=== PATIENT | female | born 1995 | race American Indian/Alaskan Native ===

== ENCOUNTER 2017-06-02 15:44 | Emergency (ER) | payer MEDICAID ==
[2017-06-02 15:53] VITALS: BP 110/49
--- NOTE | 2017-06-02 17:51 | Emergency Department Report ---
Minor Respiratory - HPI Chief Complaint: Sore Throat Stated Complaint: SORE THROAT Time Seen by Provider: 06/02/17 17:04 Duration: 3 Days Pain Location: Throat Severity: moderate Minor Respiratory: Yes Rhinorrhea, Yes Sore Throat, Yes Able to Tolerate Fluids , Yes Cough (slight), Yes Sick Contacts, No Ear Pain, No Hemoptysis, No Chest Pain, No Shortness of Breath, No Fever Other History: Pt reports sore throat, minor cough for a few days. Also reports lower abdominal pain x 1 week and has noted some discharge. Emesis x 1. ED Review of Systems ROS: Stated complaint: SORE THROAT Other details as noted in HPI Comment: All other systems reviewed and negative Constitutional: denies: chills, fever Eyes: denies: eye pain, eye discharge, vision change ENT: throat pain, congestion. denies: ear pain Respiratory: cough. denies: shortness of breath, wheezing Cardiovascular: denies: chest pain, palpitations Endocrine: no symptoms reported Gastrointestinal: abdominal pain, nausea, vomiting. denies: diarrhea Genitourinary: discharge. denies: urgency, dysuria Musculoskeletal: denies: back pain, joint swelling, arthralgia Skin: denies: rash, lesions Neurological: denies: headache, weakness, paresthesias Psychiatric: denies: anxiety, depression Hematological/Lymphatic: denies: easy bleeding, easy bruising ED Past Medical Hx - Past Medical History Previous Medical History?: No - Surgical History Past Surgical History?: No - Social History Smoking Status: Never Smoker Substance Use Type: None - Medications Home Medications: Home Medications Medication Instructions Recorded Confirmed Last Taken Type Cefuroxime [Ceftin] 500 mg PO Q12H 10 Days #40 tablet 06/02/17 Unknown Rx metroNIDAZOLE [Flagyl] 2,000 mg PO ONCE #4 tablet 06/02/17 Unknown Rx Minor Respiratory Exam - Exam General: Vital signs noted. No distress. Alert and acting appropriately. Pelvic exam with malodorous discharge, no CMT. Chaperoned by MIHAI Lorenzana HEENT: Yes Pharyngeal Erythema, Yes Pharyngeal Exudates (tonsils 2+), Yes Moist Mucous Membranes, No Rhinorrhea, No Conjuctival Injection, No Frontal Tenderness , No Maxillary Tenderness Ear: Neither TM Bulge, Neither TM Erythema, Neither EAC Pain, Neither EAC Discharge Neck: Yes Supple, No Adenopathy Lungs: Yes Good Air Exchange, No Wheezes, No Ronchi, No Stridor, No Cough, No Labored Respirations, No Retractions, No Use of Accessory Muscles, No Other Abnormal Lung Sounds Heart: Yes Regular, No Murmur Abdomen: Yes Tenderness (mild suprapubic), Yes Normal Bowel Sounds, No Peritoneal Signs Skin: No Rash, No Edema Neurologic: Alert and oriented, no deficits. Musculoskeletal: Unremarkable. ED Course Vital Signs 06/02/17 15:51 Temperature 98.3 F Pulse Rate 86 Respiratory 16 Rate Blood Pressure 110/49 O2 Sat by Pulse 100 Oximetry - Reevaluation(s) Reevaluation #1: 06/02/17 19:16 Pt stable for d/c. ED Medical Decision Making - Medical Decision Making Pt presents with tonsillitis and suprapubic pain. UA shows UTI, wet rpep shows clue cells. Empirically treated for STIs. Will d/c with Ceftin and Flagyl. - Differential Diagnosis strep, viral, uti, sti Critical care attestation.: If time is entered above; I have spent that time in minutes in the direct care of this critically ill patient, excluding procedure time. ED Disposition Clinical Impression: Bacterial vaginosis, Acute UTI Acute tonsillitis Qualifiers: Pharyngitis/tonsillitis etiology: unspecified etiology Qualified Code(s): J03.90 - Acute tonsillitis, unspecified Disposition: - TO HOME OR SELFCARE Is pt being admited?: No Condition: Good Instructions: Bacterial Vaginosis (ED), Strep Throat (ED) Prescriptions: Cefuroxime [Ceftin] 500 mg PO Q12H 10 Days #40 tablet metroNIDAZOLE [Flagyl] 2,000 mg PO ONCE #4 tablet Referrals: EMA TURNER MD [Primary Care Provider] - 3-5 Days Forms: STI Treatment and Prevention Time of Disposition: 19:20
[2017-06-02 17:59] LABS: HCG Qualitative,Urine Negative (Negative)
[2017-06-02 18:03] LABS: Bacteria,Urine 2+ /HPF (Negative); Bilirubin,Urine NEG (Negative); Blood,Urine NEG (Negative); Color,Urine Yellow (Yellow); Mucus,Urine FEW /HPF; Urobilinogen,Urine < 2.0 mg/dL (<2.0)
[2017-06-02] MEDS ORDERED: ZITHROMAX PO ONE (18:39)
[2017-06-02] MEDS ORDERED: ROCEPHIN IM ONE (18:39)
[2017-06-02] MEDS ORDERED: XYLOCAINE 1% MPF 5 mL INFILTRATI ONE (18:39)
== END 2017-06-02 19:34 | disposition home or self-care (01) ==
LOC: ED 15:44
DX: N76.0 Acute vaginitis (principal); B96.89 Other specified bacterial agents as the cause of diseases classified elsewhere; N39.0 Urinary tract infection, site not specified; J03.90 Acute tonsillitis, unspecified
CPT/HCPCS: 81001; 81025; 87210; 87591; 96372; 99283; J0696

== ENCOUNTER 2018-06-22 03:02 | Inpatient (IN) | payer MEDICAID ==
[2018-06-22] MEDS ORDERED: LACTATED RINGERS 500 ML IV ONE (03:28)
[2018-06-22 04:28] LABS: Bacteria,Urine 1+ /HPF (Negative); Bilirubin,Urine NEG (Negative); Blood,Urine NEG (Negative); Color,Urine Yellow (Yellow); Mucus,Urine FEW /HPF; Protein,Urine <15 mg/dL mg/dL (Negative)
[2018-06-22] MEDS ORDERED: LACTATED RINGERS 1,000 ML IV SCH (04:56)
[2018-06-22] MEDS ORDERED: ZOFRAN IV PRN (05:36)
[2018-06-22] MEDS ORDERED: MILK OF MAGNESIA PO PRN (05:36)
[2018-06-22] MEDS ORDERED: TYLENOL PO PRN (05:36)
[2018-06-22] MEDS ORDERED: BENADRYL PO PRN (05:36)
[2018-06-22] MEDS ORDERED: MAGNESIUM SULFATE 4GM/100ML 4 GM/100 ML BAG IV ONE (05:46)
[2018-06-22] MEDS ORDERED: AMPICILLIN/NS 2 GM/100 ML 2 GM/100 ML BAG IV ONE (05:46)
[2018-06-22] MEDS ORDERED: MYLICON PO PRN (05:46)
[2018-06-22] MEDS ORDERED: COLACE PO PRN (05:46)
--- NOTE | 2018-06-22 05:59 | History and Physical Report ---
<ZAINAB FINK D - Last Filed: 06/22/18 07:08> History of Present Illness Date of examination: 06/22/18 History of present illness: Menstrual History Regularity: regular Menses every: 28 days Duration: 7 LMP: 10/24/2018 LMP reliability: definite LMP character: normal test type: urine test Date: 04/24/2018 BC at conception: none Planned ? yes EDC Calculations LMP: 07/31/2019 EDC Confirmation: 08/30/2018 Gestational Age: 21 5/7 weeks Past History : 7 Term Births: 2 Premature Births: 1 Living Children: 3 Para: 3 Mult. Births: 0 Prev : 0 Prev. attempt? 0 Aborta: 3 Elect. Ab: 1 Spont. Ab: 2 Ectopics: 0 # 1 Delivery date: 2013 labor: no Delivery type: SAB # 2 Delivery date: 2013 Delivery type: SAB # 3 Delivery date: 2013 Weeks Gestation: 38 Delivery type: Delivery location: [place], [place] Infant Sex: Male weight: 5-6 # 4 Delivery date: 2014 Weeks Gestation: 35 labor: no Delivery type: Delivery location: [place], [place] Infant Sex: Male weight: 5-0 Comments: PROM # 5 Delivery date: 2016 Weeks Gestation: 38 labor: no Delivery type: Delivery location: [place], [place] Infant Sex: Female weight: 5-6 # 6 Delivery date: 2017 Delivery type: EAB Past Medical History: Bronchitis Past Surgical History: Negative Past Surgical History Past Medical History 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 Infection History Hx of STD: chlamydia HIV Risk Eval: low risk Hepatitis B Risk Eval: low risk Personal hx. of genital herpes: no Partner hx. of genital herpes: no Rash, Viral, or Febrile illness since last LMP? no Varicella/Chicken Pox Status: Immunized TB Risk: no Infection History Comments: gonorrhea Genetic History Congenital Heart Defect: Mom: no Dad: no Yen Disease: Mom: no Dad: no Thalassemia Mom: no Dad: no Neural Tube Defect Mom: no Dad: no Down's Syndrome Mom: no Dad: no Jsoe Antonio-Sachs Mom: no Dad: no Sickle Cell Disease/Trait Mom: no Dad: no Hemophilia Mom: no Dad: no Muscular Dystrophy Mom: no Dad: no Cystic Fibrosis Mom: no Dad: no [place] Chorea Mom: no Dad: no Mental Retardation Mom: no Dad: no Fragile X Mom: no Dad: no Other Genetic/Chromosomal Disorder Mom: no Dad: no Child w/other defect Mom: no Dad: no Enviromental Exposures Xray Exposure: no Medication, drug, or alcohol use since LMP: no Chemical/Other Exposure: no Exposure to Cat Liter: no Hx of Parvovirus (Fifth Disease): no Occupational Exposure to Children: none Current Allergies: * SHELLFISH (Critical) * NICKEL (Critical) Past History - Obstetrical History : 6 Medications and Allergies Allergies Allergy/AdvReac Type Severity Reaction Status Date / Time shellfish derived Allergy Rash Verified 06/02/17 15:53 Home Medications Medication Instructions Recorded Confirmed Last Taken Type cefUROXime [Ceftin] 500 mg PO Q12H 10 Days #40 tablet 06/02/17 Unknown Rx metroNIDAZOLE [Flagyl] 2,000 mg PO ONCE #4 tablet 06/02/17 Unknown Rx Active Meds: Active Medications Acetaminophen (Tylenol) 650 mg PO Q6H PRN PRN Reason: Pain MILD(1-3)/Fever >100.5/SENIOR Lactated Ringer's (Lactated Ringers) 1,000 mls @ 999 mls/hr IV DIRECT CARLOS MANUEL Lactated Ringer's (Lactated Ringers) 1,000 mls @ 125 mls/hr IV DIRECT CARLOS MANUEL Results Result Diagrams: 06/22/18 06:38 Abnormal lab results 06/22/18 Range/Units 03:30 Urine WBC (Auto) 26.0 H (0.0-6.0) /HPF U Epithel Cells (Auto) 20.0 H (0-13.0) /HPF All other labs normal. 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) Family/Genetic History: other (see hpi) Social history: other (see hpi) Medications and Allergies Active Meds: Active Medications Acetaminophen (Tylenol) 650 mg PO Q6H PRN PRN Reason: Pain MILD(1-3)/Fever >100.5/SENIOR Betamethasone Acet/Betameth SodPhos ([place] Soluspan) 12 mg IM Q24H CARLOS MANUEL Stop: 06/23/18 08:01 Last Admin: 06/22/18 07:25 Dose: 12 mg Documented by: Diphenhydramine HCl (Benadryl) 25 mg PO Q6H PRN PRN Reason: Itching Docusate Sodium (Colace) 100 mg PO Q12H PRN PRN Reason: Constipation Guaifenesin (Guaifenesin Dm Syrup) 10 ml PO Q6H PRN PRN Reason: Cough Lactated Ringer's (Lactated Ringers) 1,000 mls @ 125 mls/hr IV DIRECT CARLOS MANUEL Last Admin: 06/22/18 06:39 Dose: 125 mls/hr Documented by: Ampicillin Sodium (Ampicillin/Ns 1 Gm/50 Ml) 1 gm in 50 mls @ 100 mls/hr IV Q4 HR CARLOS MANUEL; Protocol Magnesium Sulfate (Magnesium Sulfate 40gm/1000ml) 40 gm in 1,000 mls @ 50 mls/hr IV DIRECT CARLOS MANUEL Magnesium Hydroxide (Milk Of Magnesia) 30 ml PO QHS PRN PRN Reason: Laxative Effect Multivitamins/Iron/Calcium ( Vitamin) 1 each PO QDAY CARLOS MANUEL Ondansetron HCl (Zofran) 4 mg IV Q6H PRN PRN Reason: Nausea And Vomiting Simethicone (Mylicon) 80 mg PO Q6H PRN PRN Reason: Gas pain Zolpidem Tartrate (Ambien) 5 mg PO QHS PRN PRN Reason: Insomnia Review of Systems All systems: negative Genitourinary: contractions - Vital Signs Vital signs: Vital Signs Pulse BP 71 111/55 06/22/18 06:23 06/22/18 06:23 Temp Pulse Resp BP Pulse Ox 110 H 124/66 85 06/22/18 08:24 06/22/18 08:02 06/22/18 08:24 - Physical Exam Breasts: Positive: normal Cardiovascular: Regular rate, Normal S1, Normal S2 Lungs: Positive: Clear to auscultation Abdomen: Positive: normal appearance, soft, normal bowel sounds. Negative: distention, tenderness Genitourinary (Female): Positive: normal external genitalia, normal perenium Vulva: both: normal Vagina: Positive: normal moisture. Negative: discharge Cervix: Negative: lesion, discharge Uterus: Positive: normal size, normal contour Adnexa: both: normal Anus/Rectum: Positive: normal perianal skin, heme negative. Negative: rectal mass, hemorrhoids Extremities: Positive: normal Deep Tendon Reflex Grade: Normal +2 - Obstetrical FHR: auscultation normal Uterine Contraction Monitor Mode: External Uterine Contraction Pattern: Irregular Uterine Tone Measurement Phase: Contraction Uterine Contraction Intensity: Mild Results Result Diagrams: 06/22/18 06:38 Abnormal lab results 06/22/18 06/22/18 Range/Units 03:30 06:38 RBC 3.39 L (3.65-5.03) M/mm3 Hct 29.7 L (30.3-42.9) % RDW 13.0 L (13.2-15.2) % Urine WBC (Auto) 26.0 H (0.0-6.0) /HPF U Epithel Cells (Auto) 20.0 H (0-13.0) /HPF All other labs normal. Assessment and Plan Patient presents for contractions. SVE 2.5/60/OOP, posterior, IBOW. Admission orders placed in EMR, BMZ series, magnesium per protocol. VSSAF. Pt was +chl amydia in office, treatment prescribed. AMADO ordered here. US for EFW ordered. NICU consult input. Will continue to monitor.
[2018-06-22] MEDS ORDERED: AMBIEN PO PRN ×2 (06:01→07:15)
[2018-06-22] MEDS: LACTATED RINGERS 1,000 ML IV SCH (06:39)
[2018-06-22] MEDS: MAGNESIUM SULFATE 40GM/1000ML 40 GM/1,000 ML BAG IV SCH (07:00)
[2018-06-22 07:04] LABS: Hematocrit 29.7 % (30.3-42.9); Hemoglobin 10.1 gm/dl (10.1-14.3); Mean Corpuscular HGB Conc 34 % (30-34); Mean Corpuscular Volume 88 fl (79-97); Platelet Count 222 K/mm3 (140-440); Red Blood Count 3.39 M/mm3 (3.65-5.03)
[2018-06-22] MEDS: CELESTONE SOLUSPAN IM SCH (07:25)
--- NOTE | 2018-06-22 08:26 | Progress Note ---
Subjective - Subjective Date of service: 06/22/18 Patient reports: movement normal, contractions, no new complaints, no loss of fluid, no vaginal bleeding Objective - Vital Signs Vital Signs: Vital Signs - 12hr 06/22/18 06/22/18 06/22/18 06:23 06:28 06:34 Pulse Rate 71 81 90 Blood Pressure 111/55 113/56 119/56 O2 Sat by Pulse Oximetry 06/22/18 06/22/18 06/22/18 06:41 06:46 06:51 Pulse Rate 84 87 76 Blood Pressure 124/63 O2 Sat by Pulse 98 98 100 Oximetry 06/22/18 06/22/18 06/22/18 06:56 07:01 07:06 Pulse Rate 82 78 76 Blood Pressure 118/61 O2 Sat by Pulse 99 98 100 Oximetry 06/22/18 06/22/18 06/22/18 07:11 07:16 07:21 Pulse Rate 75 77 81 Blood Pressure 113/59 O2 Sat by Pulse 99 99 99 Oximetry 06/22/18 06/22/18 06/22/18 07:26 07:31 07:36 Pulse Rate 83 81 76 Blood Pressure 115/59 O2 Sat by Pulse 100 100 100 Oximetry 06/22/18 06/22/18 06/22/18 07:41 07:46 07:51 Pulse Rate 81 82 83 Blood Pressure 115/57 O2 Sat by Pulse 100 100 99 Oximetry 06/22/18 06/22/18 06/22/18 07:56 07:58 08:01 Pulse Rate 87 62 95 H Blood Pressure O2 Sat by Pulse 99 89 100 Oximetry 06/22/18 06/22/18 06/22/18 08:02 08:06 08:11 Pulse Rate 83 75 89 Blood Pressure 124/66 O2 Sat by Pulse 100 99 Oximetry 06/22/18 08:17 Pulse Rate 83 Blood Pressure O2 Sat by Pulse 100 Oximetry - Exam Breasts: normal Cardiovascular: Regular rate, Normal S1, Normal S2 Lungs: Clear to auscultation Abdomen: Present: normal appearance, soft, normal bowel sounds. Absent: distention, tenderness Vulva: both: normal Uterus: Present: normal FHR: auscultation normal Uterine Contraction Monitor Mode: External Uterine Contraction Pattern: Irregular Uterine Contraction Intensity: Mild Extremities: normal Deep Tendon Reflex Grade: Normal +2 - Labs Labs: Abnormal Labs 06/22/18 06/22/18 03:30 06:38 RBC 3.39 L Hct 29.7 L RDW 13.0 L Urine WBC (Auto) 26.0 H U Epithel Cells (Auto) 20.0 H Laboratory Results - last 24 hr 06/22/18 06/22/18 03:30 06:38 WBC 10.5 RBC 3.39 L Hgb 10.1 Hct 29.7 L MCV 88 MCH 30 MCHC 34 RDW 13.0 L Plt Count 222 Urine Color Yellow Urine Turbidity Slightly-cloudy Urine pH 7.0 Ur Specific [place] 1.019 Urine Protein <15 mg/dl Urine Glucose (UA) Neg Urine Ketones Neg Urine Blood Neg Urine Nitrite Neg Urine Bilirubin Neg Urine Urobilinogen 2.0 Ur Leukocyte Esterase Lg Urine WBC (Auto) 26.0 H Urine RBC (Auto) 3.0 U Epithel Cells (Auto) 20.0 H Urine Bacteria (Auto) 1+ Urine Mucus Few
[2018-06-22] MEDS ORDERED: SUBLIMAZE IV PRN (08:39)
[2018-06-22] MEDS ORDERED: SUBLIMAZE ONE (08:44)
[2018-06-22 09:02] LABS: Amphetamine Screen,Urine PRESUMPTIVE NEGATIVE; Benzodiazepines Screen,Urine PRESUMPTIVE NEGATIVE; Cocaine Screen,Urine PRESUMPTIVE NEGATIVE; Methadone Screen,Urine PRESUMPTIVE NEGATIVE; Opiate Screen,Urine PRESUMPTIVE NEGATIVE
--- NOTE | 2018-06-22 09:17 | Ultrasound Report ---
PROCEDURE: US OB >= 14 WEEKS FETUS TECHNIQUE: Real-time transabdominal sonography of the uterus, placenta, amniotic fluid, adnexa, and fetus was performed with image documentation. Measurements were obtained to determine age/size. M-mode Doppler was used to document heartbeat. ADDITIONAL GESTATION: None HISTORY: PTL COMPARISONS: None. FINDINGS: MATERNAL: Uterus and cervix: The cervix is closed measures 4 cm in length. Adnexa and ovaries: Not visualized. IUP: Single live intrauterine gestation. Position: Cephalic Placental position: Posterior, without previa . Amniotic fluid volume Normal. LAURA is 10.2 cm. Cardiac activity: Regular rhythm at 130 bpm. ANATOMY: Face/lips/nose: Normal. Cerebral ventricles: Normal. Cisterna magna/cerebellum: Not well visualized due to lie. Heart: Normal. Stomach: Normal. Umbilical cord: 3 vessel umbilical cord with normal insertion. Kidneys: Normal. Bladder: Normal. Spine: Normal. Extremities: Normal. BIOMETRY: Biparietal diameter: 7.24 cm, corresponding to a gestational age of 29 weeks, 0 days. Head circumference: 25.87 cm, corresponding to a gestational age of 28 weeks, 1 day. abdominal circumference: 24.85 cm, corresponding to a gestational age of 29 weeks, 1 day. Femur length: 5.36 cm, corresponding to a gestational age of 28 weeks, 3 days. Ratio biometry: Normal . Estimated Weight: 1280 grams +/- 189 grams. 2 pounds, 13 ounces +/- 7.ounces. 6. percentile . Mean Gestational Age (composite criteria) based on today's measurements: 30 weeks, 1 day. Estimated Due Date (earliest scan): 09/09/2018. IMPRESSION: Single live intrauterine gestation at 30 weeks, 1 day. Estimated due date: 09/09/2018. No anatomic abnormality. This document is electronically signed by Nubia Morrison MD., Jun 22 2018 09:15:01 AM ET
[2018-06-22 09:47] LABS: Cannabinoid Screen,Urine PRESUMPTIVE POSITIVE
[2018-06-22] MEDS ORDERED: CELESTONE SOLUSPAN IM SCH (10:00)
[2018-06-22] MEDS ORDERED: AMPICILLIN/NS 1 GM/50 ML 1 GM/50 ML BAG IV SCH (10:00)
[2018-06-22 11:55] LABS: Band Neutrophils # (Manual) 0.1 K/mm3; Myelocytes # (Manual) 0.1 K/mm3; Total Cells Counted 100
[2018-06-22 11:56] LABS: Platelet Estimate Consistent w Auto; RBC Morphology Normal
[2018-06-22] MEDS: AMPICILLIN/NS 1 GM/50 ML 1 GM/50 ML BAG IV SCH ×2 (12:28→17:05)
[2018-06-22] MEDS: PRENATAL VITAMIN PO SCH (12:29)
[2018-06-23] MEDS: MAGNESIUM SULFATE 40GM/1000ML 40 GM/1,000 ML BAG IV SCH (02:42)
--- NOTE | 2018-06-23 06:53 | Progress Note ---
Assessment and Plan - Patient Problems (1) 30 weeks gestation of Current Visit: Yes Status: Acute Plan to address problem: 1. BMZ second dose due 07 (2) labor in third trimester Current Visit: Yes Status: Acute Qualifiers: Fetus number: single or unspecified fetus Plan to address problem: Pt resting O2 on via facemask Pt c/o pressure Denies ctx Reports +FM VSS Ctx irreg mod-mild SVE no change FHR 130 minimal variability IUP@ 30w2d Second dose BMZ due @ 0730 MGSO4 @ 2gm/hr Will continue POC as ordered Will consult with . Subjective - Subjective Date of service: 06/23/18 (c/o pressure) Principal diagnosis: IUP@30w2d PTL Patient reports: movement normal Objective - Vital Signs Vital Signs: Vital Signs - 12hr 06/22/18 06/22/18 06/22/18 18:55 19:00 19:05 Temperature Pulse Rate 101 H 94 H 91 H Respiratory Rate Blood Pressure O2 Sat by Pulse 97 100 98 Oximetry 06/22/18 06/22/18 06/22/18 19:10 19:15 19:20 Temperature Pulse Rate 107 H 96 H 94 H Respiratory Rate Blood Pressure O2 Sat by Pulse 97 98 97 Oximetry 06/22/18 06/22/18 06/22/18 19:25 19:30 19:32 Temperature Pulse Rate 90 97 H 93 H Respiratory Rate Blood Pressure 119/60 O2 Sat by Pulse 98 98 Oximetry 06/22/18 06/22/18 06/22/18 19:35 19:40 19:45 Temperature Pulse Rate 92 H 95 H 96 H Respiratory Rate Blood Pressure O2 Sat by Pulse 98 98 98 Oximetry 06/22/18 06/22/18 06/22/18 19:50 19:55 20:00 Temperature Pulse Rate 98 H 104 H 95 H Respiratory Rate Blood Pressure O2 Sat by Pulse 98 96 98 Oximetry 06/22/18 06/22/18 06/22/18 20:05 20:10 20:15 Temperature Pulse Rate 97 H 95 H 92 H Respiratory Rate Blood Pressure O2 Sat by Pulse 96 96 96 Oximetry 06/22/18 06/22/18 06/22/18 20:20 20:25 20:30 Temperature 97.6 F Pulse Rate 99 H 108 H Respiratory 20 Rate Blood Pressure O2 Sat by Pulse 98 100 96 Oximetry 06/22/18 06/22/18 06/22/18 22:35 22:40 22:48 Temperature Pulse Rate 83 59 L Respiratory Rate Blood Pressure 111/53 O2 Sat by Pulse 88 92 Oximetry 06/22/18 06/22/18 06/23/18 23:32 23:58 00:25 Temperature Pulse Rate 83 76 Respiratory Rate Blood Pressure 107/53 O2 Sat by Pulse 90 77 L Oximetry 06/23/18 06/23/18 06/23/18 00:32 00:35 00:55 Temperature 66.8 F L Pulse Rate 88 Respiratory 18 Rate Blood Pressure 112/57 O2 Sat by Pulse 74 L 77 L Oximetry 06/23/18 06/23/18 06/23/18 01:32 01:52 01:57 Temperature Pulse Rate 90 55 L Respiratory Rate Blood Pressure 98/51 O2 Sat by Pulse 0 L 85 Oximetry 06/23/18 06/23/18 06/23/18 02:32 02:47 02:48 Temperature Pulse Rate 93 H 53 L Respiratory Rate Blood Pressure 112/57 O2 Sat by Pulse 86 89 Oximetry 06/23/18 06/23/18 06/23/18 02:54 02:59 03:04 Temperature Pulse Rate 100 H 79 76 Respiratory Rate Blood Pressure O2 Sat by Pulse 99 96 100 Oximetry 06/23/18 06/23/18 06/23/18 03:09 03:14 03:19 Temperature Pulse Rate 79 102 H 68 Respiratory Rate Blood Pressure O2 Sat by Pulse 99 87 98 Oximetry 06/23/18 06/23/18 06/23/18 03:24 03:29 03:32 Temperature Pulse Rate 70 70 72 Respiratory Rate Blood Pressure 103/58 O2 Sat by Pulse 97 97 93 Oximetry 06/23/18 06/23/18 06/23/18 03:34 03:39 03:44 Temperature Pulse Rate 74 72 80 Respiratory Rate Blood Pressure O2 Sat by Pulse 97 97 98 Oximetry 06/23/18 06/23/18 06/23/18 03:49 03:54 03:59 Temperature Pulse Rate 66 74 75 Respiratory Rate Blood Pressure O2 Sat by Pulse 99 98 98 Oximetry 06/23/18 06/23/18 06/23/18 04:04 04:09 04:14 Temperature Pulse Rate 74 79 80 Respiratory Rate Blood Pressure O2 Sat by Pulse 98 98 98 Oximetry 06/23/18 06/23/18 06/23/18 04:19 04:24 04:29 Temperature Pulse Rate 78 82 77 Respiratory Rate Blood Pressure O2 Sat by Pulse 98 98 98 Oximetry 06/23/18 06/23/18 06/23/18 04:32 04:34 04:39 Temperature Pulse Rate 77 106 H 76 Respiratory Rate Blood Pressure 92/48 O2 Sat by Pulse 82 L 96 Oximetry 06/23/18 06/23/18 06/23/18 04:44 04:49 04:54 Temperature Pulse Rate 77 79 76 Respiratory Rate Blood Pressure O2 Sat by Pulse 96 96 96 Oximetry 06/23/18 06/23/18 06/23/18 04:59 05:04 05:09 Temperature Pulse Rate 77 79 77 Respiratory Rate Blood Pressure O2 Sat by Pulse 96 96 96 Oximetry 06/23/18 06/23/18 06/23/18 05:14 05:19 05:20 Temperature Pulse Rate 77 79 91 H Respiratory Rate Blood Pressure O2 Sat by Pulse 96 95 94 Oximetry 06/23/18 06/23/18 06/23/18 05:24 05:29 05:36 Temperature Pulse Rate 83 84 79 Respiratory Rate Blood Pressure O2 Sat by Pulse 97 99 100 Oximetry 06/23/18 06/23/18 06/23/18 05:41 05:46 05:51 Temperature Pulse Rate 97 H 74 76 Respiratory Rate Blood Pressure O2 Sat by Pulse 100 100 100 Oximetry 06/23/18 06/23/18 06/23/18 05:56 06:01 06:06 Temperature Pulse Rate 75 76 72 Respiratory Rate Blood Pressure O2 Sat by Pulse 100 100 100 Oximetry 06/23/18 06/23/18 06/23/18 06:11 06:16 06:21 Temperature Pulse Rate 75 73 75 Respiratory Rate Blood Pressure O2 Sat by Pulse 100 100 99 Oximetry 06/23/18 06/23/18 06/23/18 06:26 06:31 06:32 Temperature Pulse Rate 76 78 77 Respiratory Rate Blood Pressure 96/52 O2 Sat by Pulse 99 99 Oximetry 06/23/18 06/23/18 06/23/18 06:36 06:41 06:46 Temperature Pulse Rate 76 78 94 H Respiratory Rate Blood Pressure O2 Sat by Pulse 99 98 99 Oximetry - Exam Breasts: deferred Cardiovascular: Regular rate Lungs: Clear to auscultation (pt has O2 on via facemask Nurse intervention) Abdomen: Present: normal appearance, soft. Absent: distention, tenderness Uterus: Present: normal FHR: auscultation normal Extremities: normal Deep Tendon Reflex Grade: Normal +2 - Labs Labs: Abnormal Labs 06/22/18 06/22/18 06/22/18 03:30 06:38 10:27 RBC 3.39 L Hct 29.7 L RDW 13.0 L Lymphocytes % (Manual) 13.0 L Monocytes % (Manual) 8.0 H Eosinophils % (Manual) 5.0 H Eosinophils # (Manual) 0.5 H Magnesium 4.30 H Urine WBC (Auto) 26.0 H U Epithel Cells (Auto) 20.0 H 06/22/18 06/22/18 06/23/18 15:50 22:24 05:27 RBC Hct RDW Lymphocytes % (Manual) Monocytes % (Manual) Eosinophils % (Manual) Eosinophils # (Manual) Magnesium 4.80 H 5.50 H 5.50 H Urine WBC (Auto) U Epithel Cells (Auto) Laboratory Results - last 24 hr 06/22/18 06/22/18 06/22/18 06:38 06:38 06:38 WBC 10.5 RBC 3.39 L Hgb 10.1 Hct 29.7 L MCV 88 MCH 30 MCHC 34 RDW 13.0 L Plt Count 222 Add Manual Diff Complete Total Counted 100 Seg Neuts % (Manual) 69.0 Band Neutrophils % 1.0 Lymphocytes % (Manual) 13.0 L Reactive Lymphs % (Man) 2.0 Monocytes % (Manual) 8.0 H Eosinophils % (Manual) 5.0 H Basophils % (Manual) 1.0 Metamyelocytes % 0 Myelocytes % 1.0 Promyelocytes % 0 Blast Cells % 0 Nucleated RBC % Not Reportable Seg Neutrophils # Man 7.2 Band Neutrophils # 0.1 Lymphocytes # (Manual) 1.4 Abs React Lymphs (Man) 0.2 Monocytes # (Manual) 0.8 Eosinophils # (Manual) 0.5 H Basophils # (Manual) 0.1 Metamyelocytes # 0.0 Myelocytes # 0.1 Promyelocytes # 0.0 Blast Cells # 0.0 WBC Morphology Not Reportable Hypersegmented Neuts Not Reportable Hyposegmented Neuts Not Reportable Hypogranular Neuts Not Reportable Smudge Cells Not Reportable Toxic Granulation Not Reportable Toxic Vacuolation Not Reportable Dohle Bodies Not Reportable Pelger-Huet Anomaly Not Reportable Vaishali Rods Not Reportable Platelet Estimate Consistent w auto Clumped Platelets Not Reportable Plt Clumps, EDTA Not Reportable Large Platelets Not Reportable Giant Platelets Not Reportable Platelet Satelliting Not Reportable Plt Morphology Comment Not Reportable RBC Morphology Normal Dimorphic RBCs Not Reportable Polychromasia Not Reportable Hypochromasia Not Reportable Poikilocytosis Not Reportable Anisocytosis Not Reportable Microcytosis Not Reportable Macrocytosis Not Reportable Spherocytes Not Reportable Pappenheimer Bodies Not Reportable Sickle Cells Not Reportable Target Cells Not Reportable Tear Drop Cells Not Reportable Ovalocytes Not Reportable Helmet Cells Not Reportable [place] Bodies Not Reportable Shelly Rings Not Reportable Kayla Cells Not Reportable Bite Cells Not Reportable Crenated Cell Not Reportable Elliptocytes Not Reportable Acanthocytes (Spur) Not Reportable Rouleaux Not Reportable Hemoglobin C Crystals Not Reportable Schistocytes Not Reportable Malaria parasites Not Reportable Stephen Bodies Not Reportable Hem Pathologist Commnt No Magnesium Urine Opiates Screen Urine Methadone Screen Ur Barbiturates Screen Ur Phencyclidine Scrn Ur Amphetamines Screen U Benzodiazepines Scrn Urine Cocaine Screen U Marijuana (THC) Screen Drugs of Abuse Note RPR Nonreactive Blood Type O POSITIVE Antibody Screen Negative 06/22/18 06/22/18 06/22/18 08:20 10:27 15:50 WBC RBC Hgb Hct MCV MCH MCHC RDW Plt Count Add Manual Diff Total Counted Seg Neuts % (Manual) Band Neutrophils % Lymphocytes % (Manual) Reactive Lymphs % (Man) Monocytes % (Manual) Eosinophils % (Manual) Basophils % (Manual) Metamyelocytes % Myelocytes % Promyelocytes % Blast Cells % Nucleated RBC % Seg Neutrophils # Man Band Neutrophils # Lymphocytes # (Manual) Abs React Lymphs (Man) Monocytes # (Manual) Eosinophils # (Manual) Basophils # (Manual) Metamyelocytes # Myelocytes # Promyelocytes # Blast Cells # WBC Morphology Hypersegmented Neuts Hyposegmented Neuts Hypogranular Neuts Smudge Cells Toxic Granulation Toxic Vacuolation Dohle Bodies Pelger-Huet Anomaly Vaishali Rods Platelet Estimate Clumped Platelets Plt Clumps, EDTA Large Platelets Giant Platelets Platelet Satelliting Plt Morphology Comment RBC Morphology Dimorphic RBCs Polychromasia Hypochromasia Poikilocytosis Anisocytosis Microcytosis Macrocytosis Spherocytes Pappenheimer Bodies Sickle Cells Target Cells Tear Drop Cells Ovalocytes Helmet Cells [place] Bodies Shelly Rings Kayla Cells Bite Cells Crenated Cell Elliptocytes Acanthocytes (Spur) Rouleaux Hemoglobin C Crystals Schistocytes Malaria parasites Stephen Bodies Hem Pathologist Commnt Magnesium 4.30 H 4.80 H Urine Opiates Screen Presumptive negative Urine Methadone Screen Presumptive negative Ur Barbiturates Screen Presumptive negative Ur Phencyclidine Scrn Presumptive negative Ur Amphetamines Screen Presumptive negative U Benzodiazepines Scrn Presumptive negative Urine Cocaine Screen Presumptive negative U Marijuana (THC) Screen Presumptive positive Drugs of Abuse Note Disclamer RPR Blood Type Antibody Screen 06/22/18 06/23/18 22:24 05:27 WBC RBC Hgb Hct MCV MCH MCHC RDW Plt Count Add Manual Diff Total Counted Seg Neuts % (Manual) Band Neutrophils % Lymphocytes % (Manual) Reactive Lymphs % (Man) Monocytes % (Manual) Eosinophils % (Manual) Basophils % (Manual) Metamyelocytes % Myelocytes % Promyelocytes % Blast Cells % Nucleated RBC % Seg Neutrophils # Man Band Neutrophils # Lymphocytes # (Manual) Abs React Lymphs (Man) Monocytes # (Manual) Eosinophils # (Manual) Basophils # (Manual) Metamyelocytes # Myelocytes # Promyelocytes # Blast Cells # WBC Morphology Hypersegmented Neuts Hyposegmented Neuts Hypogranular Neuts Smudge Cells Toxic Granulation Toxic Vacuolation Dohle Bodies Pelger-Huet Anomaly Vaishali Rods Platelet Estimate Clumped Platelets Plt Clumps, EDTA Large Platelets Giant Platelets Platelet Satelliting Plt Morphology Comment RBC Morphology Dimorphic RBCs Polychromasia Hypochromasia Poikilocytosis Anisocytosis Microcytosis Macrocytosis Spherocytes Pappenheimer Bodies Sickle Cells Target Cells Tear Drop Cells Ovalocytes Helmet Cells [place] Bodies Shelly Rings Kayla Cells Bite Cells Crenated Cell Elliptocytes Acanthocytes (Spur) Rouleaux Hemoglobin C Crystals Schistocytes Malaria parasites Stephen Bodies Hem Pathologist Commnt Magnesium 5.50 H 5.50 H Urine Opiates Screen Urine Methadone Screen Ur Barbiturates Screen Ur Phencyclidine Scrn Ur Amphetamines Screen U Benzodiazepines Scrn Urine Cocaine Screen U Marijuana (THC) Screen Drugs of Abuse Note RPR Blood Type Antibody Screen
[2018-06-23] MEDS: CELESTONE SOLUSPAN IM SCH (08:20)
[2018-06-23] MEDS: LACTATED RINGERS 1,000 ML IV SCH (08:28)
[2018-06-23] MEDS: PRENATAL VITAMIN PO SCH (10:17)
--- NOTE | 2018-06-23 14:07 | Event Note ---
Date: 06/23/18 (MGSO4 d/c; wilks out) Consulted with Dr.Royster Cortes off, wilks out. Hold d/c until 1900 and monitor for ctx or any chg in condition. Follow up appt made for Sunday06-26-18 @ [id number]. Discussed d/c with pt and family All questions are addressed. Pt agrees with plan and f/u appt as scheduled. PTL H/O given, house arrest, pelvic rest, hydration. Call with any ctx, LOF, vaginal bleeding. MIHAI Craven aware of plan.
--- NOTE | 2018-06-23 14:10 | Discharge Summary ---
Providers - Providers Date of Admission: 06/22/18 06:01 Date of discharge: 06/23/18 (pt agrees to d/c @ 1900 if no chg in condition) Attending physician: ZAINAB IFNK 06/22/18 07:54 Consult to Physician [CONS] Stat Comment: Consulting Provider: BISHNU WILSON Physician Instructions: Reason For Exam: ptl Primary care physician: ZAINAB FINK Hospitalization Reason for admission: other (PTL undelivered) Condition at discharge: Good Disposition: DC-01 TO HOME OR SELFCARE - Discharge Diagnoses (1) 30 weeks gestation of Status: Acute (2) labor in third trimester Status: Acute Qualifiers: Fetus number: single or unspecified fetus Plan - Provider Discharge Summary Activity: routine, no sex for 6 weeks, no heavy lifting 4 weeks, no strenuous exercise Diet: routine Instructions: other (pelvic rest, hydration) Additional instructions: [] Smoking cessation referral if applicable(refer to patient education folder for contact #) [] Refer to [facility] Call your doctor immediately for: * Fever > 100.5 * Heavy vaginal bleeding ( >1 pad per hour) * Severe persistent headache * Shortness of breath * Reddened, hot, painful area to leg or breast * Drainage or odor from incision. * Keep incision clean and dry at all times and follow doctor's instructions regarding bathing/showering - Follow up plan Follow up: ZAINAB FINK MD [Primary Care Provider] - 06/26/18 10:45 am (Please keep this appointment as scheduled. Pelvic rest, hydration, avoid constipation. Call with any signs of labor, loss of fluid, vaginal bleeding. [phone])
[2018-06-23 17:29] VITALS: BP 109/54
--- NOTE | 2018-06-24 08:05 | Consultation ---
History of Present Illness Consult date: 06/22/18 Requesting physician: ZAINAB FINK Reason for consult: prematurity (23 year old ) History of present illness: 23 y/o admitted with feature suggestive of labor. She was started on tocolytics and a course of bethamethasone. Patient had a prior history of delivery. Documentation - information: Height 5 ft 3 in Medications and Allergies Allergies Allergy/AdvReac Type Severity Reaction Status Date / Time shellfish derived Allergy Rash Verified 06/02/17 15:53 Home Medications Medication Instructions Recorded Confirmed Last Taken Type cefUROXime [Ceftin] 500 mg PO Q12H 10 Days #40 tablet 06/02/17 06/22/18 Unknown Rx metroNIDAZOLE [Flagyl] 2,000 mg PO ONCE #4 tablet 06/02/17 06/22/18 Unknown Rx Exam Vital Signs Pulse BP 71 111/55 06/22/18 06:23 06/22/18 06:23 Temp Pulse Resp BP Pulse Ox 97.7 F 75 18 109/54 98 06/23/18 17:28 06/23/18 17:28 06/23/18 17:28 06/23/18 17:28 06/23/18 13:28 Results - Laboratory Findings 06/22/18 06:38 Abnormal lab results 06/23/18 06/23/18 Range/Units 10:36 16:19 Magnesium 5.70 H 4.10 H (1.7-2.3) mg/dL Assessment and Plan - Patient Problems (1) 30 weeks gestation of Status: Acute (2) labor in third trimester Status: Acute Qualifiers: Fetus number: single or unspecified fetus Plan to address problem: Attendace at the delivery by NICU team to provide resuscitaion which iclude use of assisted ventilation and oxygen Complications arising from delivery ar 30 weeks were discussed with Ms Cedeno. Complications discussed included but not limited to, intraventricular hemorrhage, chronic lung disease, sepsis, jaundice, central lines, retinopathy of prematurity. Moprbidy and Mortality at this gestational age (which is less than 10%) were also discussed
== END 2018-06-23 18:45 | disposition home or self-care (01) | DRG 778 ==
LOC: TRG 03:02 → LD 06:01
PROVIDERS: ADMIT Obstetrics & Gynecology; ATTEND Obstetrics & Gynecology
DX: O60.03 Preterm labor without delivery, third trimester (principal); Z3A.30 30 weeks gestation of pregnancy; Z91.013 Allergy to seafood; O09.213 Supervision of pregnancy with history of pre-term labor, third trimester
CPT/HCPCS: 36415; 76805; 80307; 81001; 83735; 85007; 85025; 86592; 86850; 86900; 86901; 87591; G0378; J0290; J0702; J2405; J3010; J3475; J7120

== ENCOUNTER 2018-07-06 23:40 | Emergency (ER) | payer MEDICAID ==
[2018-07-06] MEDS ORDERED: LACTATED RINGERS 500 ML IV ONE (23:56)
[2018-07-07 01:35] VITALS: BP 116/48
[2018-07-07] MEDS ORDERED: TYLENOL PO ONE (02:15)
[2018-07-07] MEDS ORDERED: TYLENOL ONE (02:22)
[2018-07-07] MEDS ORDERED: BENADRYL PO ONE (04:09)
[2018-07-07] MEDS ORDERED: REGLAN PO ONE (04:12)
[2018-07-07] MEDS ORDERED: XYLOCAINE 1% MPF 5 mL ONE (04:53)
[2018-07-07] MEDS ORDERED: XYLOCAINE 1% MPF 5 mL INFILTRATI ONE (06:18)
--- NOTE | 2018-07-07 06:39 | Emergency Department Report ---
ED Upper Extremity Inj HPI - General Chief Complaint: Wound/Laceration Time Seen by Provider: 07/07/18 06:13 Source: patient Mode of arrival: Ambulatory Limitations: No Limitations - History of Present Illness MD Complaint: Injury to:: right, hand - Related Data Previous Rx's Medication Instructions Recorded Last Taken Type cefUROXime [Ceftin] 500 mg PO Q12H 10 Days #40 tablet 06/02/17 Unknown Rx metroNIDAZOLE [Flagyl] 2,000 mg PO ONCE #4 tablet 06/02/17 Unknown Rx Chlorhexidine Gluconate [Hibiclens] 10 ml TP BID #240 liquid 07/07/18 Unknown Rx Allergies Allergy/AdvReac Type Severity Reaction Status Date / Time shellfish derived Allergy Rash Verified 06/02/17 15:53 ED Review of Systems ROS: Stated complaint: Other details as noted in HPI ED Past Medical Hx - Past Medical History Hx Hypertension: No Hx Congestive Heart Failure: No Hx Diabetes: No Hx Deep Vein Thrombosis: No Hx Renal Disease: No Hx Sickle Cell Disease: No Hx Seizures: No Hx Asthma: No Hx COPD: No Hx HIV: No - Surgical History Past Surgical History?: No - Social History Smoking Status: Unknown if ever smoked Substance Use Type: None - Medications Home Medications: Home Medications Medication Instructions Recorded Confirmed Last Taken Type cefUROXime [Ceftin] 500 mg PO Q12H 10 Days #40 tablet 06/02/17 06/22/18 Unknown Rx metroNIDAZOLE [Flagyl] 2,000 mg PO ONCE #4 tablet 06/02/17 06/22/18 Unknown Rx Chlorhexidine Gluconate [Hibiclens] 10 ml TP BID #240 liquid 07/07/18 Unknown Rx ED Physical Exam - General Limitations: No Limitations ED Course Vital Signs 07/06/18 07/07/18 07/07/18 23:54 01:32 02:07 Temperature 98.5 F 98.5 F Pulse Rate 84 87 82 Respiratory 18 18 Rate Blood Pressure 117/56 116/48 116/48 O2 Sat by Pulse 99 99 Oximetry Critical care attestation.: If time is entered above; I have spent that time in minutes in the direct care of this critically ill patient, excluding procedure time. ED Disposition Disposition: DC-01 TO HOME OR SELFCARE Condition: Stable Instructions: Labor (DC), Suture Care (ED), Laceration (ED) Additional Instructions: Return to ED in 7-10 days for evaluation for suture removal Prescriptions: Chlorhexidine Gluconate [Hibiclens] 10 ml TP BID #240 liquid Referrals: ZAINAB FINK MD [Primary Care Provider] - 7 Days Forms: Discharge Signature Page Print Language: HAITIAN
== END 2018-07-07 06:46 | disposition home or self-care (01) ==
LOC: ED 23:40 → TRG 23:40 → ED 07-07 06:46
DX: S61.219A Laceration without foreign body of unspecified finger without damage to nail, initial encounter (principal); W25.XXXA Contact with sharp glass, initial encounter; Y93.89 Activity, other specified; Y92.89 Other specified places as the place of occurrence of the external cause; Y99.8 Other external cause status
CPT/HCPCS: 59025; 99282

== ENCOUNTER 2018-07-26 08:25 | Outpatient (CLI) | payer MEDICAID ==
[2018-07-26] MEDS ORDERED: LACTATED RINGERS 500 ML IV ONE (08:47)
[2018-07-26] MEDS ORDERED: LACTATED RINGERS 1,000 ML ONE (09:00)
[2018-07-26] MEDS ORDERED: LACTATED RINGERS 1,000 ML IV SCH (09:00)
[2018-07-26] MEDS ORDERED: BRETHINE SUB-Q ONE (09:14)
[2018-07-26] MEDS ORDERED: BRETHINE ONE (09:17)
[2018-07-26 09:18] VITALS: BP 111/58
[2018-07-26 09:23] LABS: Bacteria,Urine 1+ /HPF (Negative); Bilirubin,Urine NEG (Negative); Blood,Urine NEG (Negative); Color,Urine Yellow (Yellow); Mucus,Urine FEW /HPF; Protein,Urine <15 mg/dL mg/dL (Negative); Urobilinogen,Urine < 2.0 mg/dL (<2.0)
== END 2018-07-26 10:10 | disposition home or self-care (01) ==
LOC: TRG 08:25
PROVIDERS: ATTEND Obstetrics & Gynecology
DX: O62.9 Abnormality of forces of labor, unspecified (principal); Z3A.35 35 weeks gestation of pregnancy
CPT/HCPCS: 59025; 81001; 87086; 96360; 96361; 96372; J3105; J7120

== ENCOUNTER 2018-07-28 07:38 | Outpatient (CLI) | payer MEDICAID ==
[2018-07-28 07:58] VITALS: BP 103/57
[2018-07-28] MEDS ORDERED: LACTATED RINGERS 500 ML IV ONE (08:08)
[2018-07-28 09:16] LABS: Bilirubin,Urine NEG (Negative); Blood,Urine NEG (Negative); Color,Urine Straw (Yellow); Protein,Urine <15 mg/dL mg/dL (Negative); Urobilinogen,Urine < 2.0 mg/dL (<2.0); WBC,Urine < 1.0 /HPF (0.0-6.0)
[2018-07-28 09:43] LABS: Amphetamine Screen,Urine PRESUMPTIVE NEGATIVE; Benzodiazepines Screen,Urine PRESUMPTIVE NEGATIVE; Cocaine Screen,Urine PRESUMPTIVE NEGATIVE; Methadone Screen,Urine PRESUMPTIVE NEGATIVE; Opiate Screen,Urine PRESUMPTIVE NEGATIVE
[2018-07-28 10:17] LABS: Cannabinoid Screen,Urine PRESUMPTIVE POSITIVE
== END 2018-07-28 09:01 | disposition home or self-care (01) ==
LOC: TRG 07:38
PROVIDERS: ATTEND Obstetrics & Gynecology
DX: O47.03 False labor before 37 completed weeks of gestation, third trimester (principal); Z3A.35 35 weeks gestation of pregnancy
CPT/HCPCS: 59025; 80307; 81001

== ENCOUNTER 2018-08-06 01:58 | Inpatient (IN) | payer MEDICAID ==
[2018-08-06] MEDS ORDERED: LACTATED RINGERS 1,000 ML IV ONE (03:46)
[2018-08-06 04:27] LABS: Hematocrit 33.2 % (30.3-42.9); Mean Corpuscular HGB Conc 33 % (30-34); Mean Corpuscular Volume 86 fl (79-97); Platelet Count 228 K/mm3 (140-440); Red Blood Count 3.85 M/mm3 (3.65-5.03); Red Cell Distribution Width 13.7 % (13.2-15.2)
[2018-08-06] MEDS ORDERED: SUBLIMAZE IV ONE (04:31)
[2018-08-06] MEDS ORDERED: XYLOCAINE 2% INFILTRATI ONE (04:44)
[2018-08-06] MEDS ORDERED: BRETHINE SUB-Q PRN (04:44)
[2018-08-06] MEDS ORDERED: AMPICILLIN/NS 2 GM/100 ML 2 GM/100 ML BAG IV ONE (04:44)
[2018-08-06] MEDS ORDERED: MINERAL OIL PO PRN (04:44)
--- NOTE | 2018-08-06 04:44 | History and Physical Report ---
History of Present Illness Date of examination: 08/06/18 (pt presents in active labor) Date of admission: 08/06/18 04:12 History of present illness: EDC Confirmation: 08/30/2018 Gestational Age: 21 5/7 weeks Past History : 7 Term Births: 2 Premature Births: 1 Living Children: 3 Para: 3 Mult. Births: 0 Prev : 0 Prev. attempt? 0 Aborta: 3 Elect. Ab: 1 Spont. Ab: 2 Ectopics: 0 # 1 Delivery date: 2013 labor: no Delivery type: SAB # 2 Delivery date: 2013 Delivery type: SAB # 3 Delivery date: 2013 Weeks Gestation: 38 Delivery type: Delivery location: [place], [place] Infant Sex: Male weight: 5-6 # 4 Delivery date: 2014 Weeks Gestation: 35 labor: no Delivery type: Delivery location: [place], [place] Sex: Male weight: 5-0 Comments: PROM # 5 Delivery date: 2016 Weeks Gestation: 38 labor: no Delivery type: Delivery location: [place], [place] Infant Sex: Female weight: 5-6 # 6 Delivery date: 2017 Delivery type: EAB Past Medical History: Bronchitis Past Surgical History: Negative Past Surgical History Past Medical History Surgery (Non-merchandising assistant): Negative Past Surgical History Abnormal PAP: negative CORDELL Exposure: negative Infertility: negative Uterine Anomaly: negative Uterine Surgery (not C/S): negative Other Gynecologic Problems: negative Social Hx: Patient is single Smoking History: Patient has never smoked. Infection History Hx of STD: chlamydia HIV Risk Eval: low risk Hepatitis B Risk Eval: low risk Personal hx. of genital herpes: no Partner hx. of genital herpes: no Rash, Viral, or Febrile illness since last LMP? no Varicella/Chicken Pox Status: Immunized TB Risk: no Infection History Comments: gonorrhea Genetic History Congenital Heart Defect: Mom: no Dad: no Yen Disease: Mom: no Dad: no Thalassemia Mom: no Dad: no Neural Tube Defect Mom: no Dad: no Down's Syndrome Mom: no Dad: no Jose Antonio-Sachs Mom: no Dad: no Sickle Cell Disease/Trait Mom: no Dad: no Hemophilia Mom: no Dad: no Muscular Dystrophy Mom: no Dad: no Cystic Fibrosis Mom: no Dad: no [place] Chorea Mom: no Dad: no Mental Retardation Mom: no Dad: no Fragile X Mom: no Dad: no Other Genetic/Chromosomal Disorder Mom: no Dad: no Child w/other defect Mom: no Dad: no Enviromental Exposures Xray Exposure: no Medication, drug, or alcohol use since LMP: no Chemical/Other Exposure: no Exposure to Cat Liter: no Hx of Parvovirus (Fifth Disease): no Occupational Exposure to Children: none Current Allergies: * SHELLFISH (Critical) * NICKEL (Critical) Past History - Obstetrical History Expected Date of Delivery: 08/30/18 Actual Gestation: 36 Week(s) 4 Day(s) : 7 Para: 3 Hx # Term Pregnancies: 2 Number of Pregnancies: 1 Spontaneous Abortions: 2 Induced : 1 Number of Living Children: 3 Medications and Allergies Allergies Allergy/AdvReac Type Severity Reaction Status Date / Time iodine Allergy Anaphylaxis Verified 08/06/18 02:34 shellfish derived Allergy Rash Verified 06/02/17 15:53 Home Medications Medication Instructions Recorded Confirmed Last Taken Type Vit-Fe Fumar-FA [ 1 tab PO QDAY 08/06/18 08/06/18 1 Month Ago History Vitamin] ~07/06/18 Active Meds: Active Medications Lactated Ringer's (Lactated Ringers) 1,000 mls @ 999 mls/hr IV BOLUS ONE Stop: 08/06/18 04:46 - Vital Signs Vital signs: Vital Signs Temp Pulse Resp BP Pulse Ox 98.3 F 79 16 116/54 98 08/06/18 02:11 08/06/18 02:11 08/06/18 02:11 08/06/18 02:11 08/06/18 02:11 Temp Pulse Resp BP Pulse Ox 98.3 F 77 16 115/56 100 08/06/18 02:11 08/06/18 04:33 08/06/18 02:11 08/06/18 04:33 08/06/18 03:44 - Physical Exam Breasts: Positive: deferred Cardiovascular: Regular rate, Normal S1, Normal S2 Lungs: Positive: Normal air movement Abdomen: Positive: normal appearance, soft, normal bowel sounds. Negative: distention, tenderness Genitourinary (Female): Positive: normal external genitalia Vulva: both: normal Vagina: Positive: normal moisture. Negative: discharge Cervix: Negative: lesion, discharge Uterus: Positive: normal size, normal contour Adnexa: both: normal Anus/Rectum: Positive: normal perianal skin, heme negative. Negative: rectal mass, hemorrhoids Extremities: Deep Tendon Reflex Grade: Normal +2 - Obstetrical FHR: category 1 Uterine Contraction Monitor Mode: External Cervical Dilatation: 5 Cervical Effacement Percentage: 70 station: -2 Uterine Contraction Pattern: Regular Uterine Tone Measurement Phase: Resting Uterine Contraction Intensity: Moderate Results Result Diagrams: 08/06/18 03:57 Abnormal lab results 08/06/18 Range/Units 03:57 WBC 18.0 H (4.5-11.0) K/mm3 All other labs normal. GBS Positive HBsAg Screen Negative Negative *1 RPR Non Reactive Non Reactive *2 Rubella Antibodies, IgG [L] 0.97 index Immune >0.99 *3 A second sample should be collected and tested no less than 2-4 weeks. Non-immune <0.90 Equivocal 0.90 - 0.99 Immune >0.99 ABO Grouping O *4 Rh Factor Positive *5 Please note: Prior records for this patient's ABO / Rh type are not available for additional verification. Antibody Screen Negative Negative *6 WBC [H] 12.5 x10E3/uL 3.4-10.8 *7 RBC 4.06 x10E6/uL 3.77-5.28 *8 Hemoglobin 11.6 g/dL 11.1-15.9 *9 Hematocrit 35.8 % 34.0-46.6 *10 MCV 88 fL 79-97 *11 MCH 28.6 pg 26.6-33.0 *12 MCHC 32.4 g/dL 31.5-35.7 *13 RDW 13.7 % 12.3-15.4 *14 Platelets 234 x10E3/uL 150-379 *15 Neutrophils 69 % Not Estab. *16 Lymphs 19 % Not Estab. *17 Monocytes 7 % Not Estab. *18 Eos 3 % Not Estab. *19 Basos 0 % Not Estab. *20 ! Immature Cells <No Reported Value> *21 Neutrophils (Absolute) [H] 8.5 x10E3/uL 1.4-7.0 *22 Lymphs (Absolute) 2.4 x10E3/uL 0.7-3.1 *23 Monocytes(Absolute) 0.9 x10E3/uL 0.1-0.9 *24 Eos (Absolute) 0.4 x10E3/uL 0.0-0.4 *25 Baso (Absolute) 0.0 x10E3/uL 0.0-0.2 *26 ! Immature Granulocytes 2 % Not Estab. *27 ! Immature Grans (Abs) [H] 0.2 x10E3/uL 0.0-0.1 *28 (An elevated percentage of Immature Granulocytes has not been found to be clinically significant as a sole clinical predictor of disease. Does NOT include bands or blast cells. associated physiological leukocytosis may also show increased immature granulocytes without clinical significance.) ! NRBC <No Reported Value> *29 Hematology Comments: <No Reported Value> *30 Tests: (2) Panel 502470 ([id number]) HIV Screen 4th Generation wRfx Non Reactive Non Reactive *31 Tests: (3) Gest. Diabetes 1-Hr Screen ([id number]) ! Gestational Diabetes Screen 80 mg/dL 65-139 *32 According to ADA, a glucose threshold of >139 mg/dL after 50-gram load identifies approximately 80% of women with gestational diabetes mellitus, while the sensitivity is further increased to approximately 90% by a threshold of >129 mg/dL. Tests: (4) HCV Ab w/Rflx to Verification (805372) ! HCV Ab <0.1 s/co ratio 0.0-0.9 *33 Tests: (5) Comment: ([id number]) ! Comment: SPRCS *34 Non reactive HCV antibody screen is consistent with no HCV infection, unless recent infection is suspected or other evidence exists to indicate HCV infection. Tests: (6) Urine Culture, Routine ([id number]) Urine Culture, Routine [A] Final report *35 Tests: (7) Result ([id number]) ! Result 1 [A] BETAGB *36 Beta hemolytic Streptococcus, group B 10,000-25,000 colony forming units per mL Penicillin and ampicillin are drugs of choice for treatment of beta-hemolytic streptococcal infections. Susceptibility testing of penicillins and other beta-lactam agents approved by the FDA for treatment of beta-hemolytic streptococcal infections need not be performed routinely because nonsusceptible isolates are extremely rare in any beta-hemolytic streptococcus and have not been reported for Streptococcus pyogenes (group A). (CLSI) ! Result 2 MUG *37 Mixed urogenital zach 25,000-50,000 colony forming units per mL Assessment and Plan 23yo @ 36 weeks in active labor GBS+ Orders in EMR made aware of admission
[2018-08-06] MEDS ORDERED: PITOCin/NS 20 UNIT/1000ML DRIP 20 UNITS/1,000 ML BAG IV SCH ×2 (05:00→11:09)
[2018-08-06] MEDS ORDERED: LACTATED RINGERS 1,000 ML IV SCH (05:00)
[2018-08-06] MEDS ORDERED: NARCAN 2 MG/2 ML IV PRN (06:13)
--- NOTE | 2018-08-06 06:15 | Anesthesia Consultation ---
Anesthesia Consult and Med Hx Date of service: 08/06/18 - Airway Anesthetic Teeth Evaluation: Good ROM Head & Neck: Adequate Mental/Hyoid Distance: Adequate Mallampati Class: Class I Intubation Access Assessment: Probably Good - Pulmonary Exam CTA: No - Cardiac Exam Cardiac Exam: RRR - Pre-Operative Health Status ASA Pre-Surgery Classification: ASA2 Proposed Anesthetic Plan: Epidural - Pulmonary Hx Asthma: No COPD: No Hx Pneumonia: No - Cardiovascular System Hx Hypertension: No - Central Nervous System Hx Seizures: No Hx Psychiatric Problems: No - Endocrine Hx Renal Disease: No Hx End Stage Renal Disease: No Hx Hypothyroidism: No Hx Hyperthyroidism: No - Hematic Hx Anemia: No Hx Sickle Cell Disease: No - Other Systems Hx Alcohol Use: No
--- NOTE | 2018-08-06 06:16 | Anesthesia Day of Surgery ---
Anesthesia Day of Surgery - Day of Surgery Patient Examined: Yes Patient H&P Reviewed: Yes Patient is NPO: Yes
[2018-08-06] MEDS ORDERED: PITOCin/NS 30 UNIT/500ML 30 UNITS/500 ML BAG IV SCH (06:45)
[2018-08-06] MEDS ORDERED: fentaNYL-BUPIV 2 MCG/ML-0.125% 200 MCG/100 ML BAG EPIDURAL SCH (07:00)
[2018-08-06 07:51] LABS: Amphetamine Screen,Urine PRESUMPTIVE NEGATIVE; Benzodiazepines Screen,Urine PRESUMPTIVE NEGATIVE; Cocaine Screen,Urine PRESUMPTIVE NEGATIVE; Methadone Screen,Urine PRESUMPTIVE NEGATIVE; Opiate Screen,Urine PRESUMPTIVE NEGATIVE
[2018-08-06 08:13] LABS: Cannabinoid Screen,Urine PRESUMPTIVE POSITIVE
--- NOTE | 2018-08-06 08:23 | Procedure Note ---
OB Delivery Note - Delivery Date of Delivery: 08/06/18 ( male "Faithful") Music Journalist: PONCE DENISE Estimated blood loss: 300cc - Vaginal Delivery presentation: vertex Delivery position: OA Intrapartum events: labor-<37 weeks Delivery induction: none Delivery augmentation: rupture of membranes, pitocin Delivery monitor: external uterine, internal FHT Route of delivery: Delivery placenta: spontaneous Delivery cord: 3 umbilical vessels Episiotomy: none Delivery laceration: none Anesthesia: epidural Delivery comments: male del FANNY over intact perineum, left hand delivered with posterior shoulder. placed on mother's abdomen for skin to skin. 3 vessel cord clamped and cut. cord blood collected. Placenta del intact and complete. Pit to IVF. no laceration to repair. Fundus firm, lochia scant. EBL 300. Apgars 8/9, wt 6#5. mother and infant LDR stable. - Infant A at 1 minute: 8 at 5 minutes: 9 Gender: Male (6#5oz)
[2018-08-06] MEDS ORDERED: AMPICILLIN/NS 1 GM/50 ML 1 GM/50 ML BAG IV SCH (08:45)
[2018-08-06] MEDS ORDERED: ZOFRAN IV PRN (11:09)
[2018-08-06] MEDS ORDERED: PHENERGAN PO PRN (11:09)
[2018-08-06] MEDS ORDERED: TUCKS PAD TP PRN (11:09)
[2018-08-06] MEDS ORDERED: LANSINOH TP PRN (11:09)
[2018-08-06] MEDS ORDERED: DULCOLAX PR PRN (11:09)
[2018-08-06] MEDS ORDERED: SODIUM CHLORIDE FLUSH SYRINGE 10 ML IV NR (11:09)
[2018-08-06] MEDS ORDERED: BENADRYL PO PRN (11:09)
[2018-08-06] MEDS ORDERED: TYLENOL PO PRN (11:09)
[2018-08-06] MEDS ORDERED: MILK OF MAGNESIA PO PRN (11:09)
[2018-08-06] MEDS: IBUPROFEN PO SCH ×2 (12:15→18:31)
[2018-08-06] MEDS: PRENATAL VITAMIN PO SCH (12:15)
[2018-08-06] MEDS: NORCO 5/325 PO PRN ×2 (16:00→21:57)
[2018-08-06 20:18] LABS: Hematocrit 29.5 % (30.3-42.9); Hemoglobin 9.9 gm/dl (10.1-14.3)
[2018-08-07] MEDS ORDERED: DERMOPLAST TP PRN
[2018-08-07] MEDS: IBUPROFEN PO SCH ×3 (00:31→17:21)
[2018-08-07] MEDS: NORCO 5/325 PO PRN ×2 (04:28→17:22)
[2018-08-07] MEDS ORDERED: M-M-R II VACCINE SUB-Q ONE (06:00)
[2018-08-07] MEDS ORDERED: BOOSTRIX IM ONE (06:00)
--- NOTE | 2018-08-07 08:27 | Progress Note ---
Assessment and Plan PPD 1 s/p . Patient resting in bed, reports feeling well, denies any complaints or concerns at this time. Fundus is firm, ML, U/1. Vaginal bleeding is small, patient denies any heavy bleeding or clots. Patient reports pain is well controlled with medications. VSSAF. DWP post delivery labs, she denies any dizziness or feeling faint with ambulation or position changes. DWP CM consult, she reports that she has an open case with [facility] that involves the [facility] and his prior child's mother d/t them living in a hotel at one point and "unstable" but reports "we are fine now, I do have custody of my other kids and they are at home". Informed patient that CM will need to clear her before I can discharge her home. She verbalizes understanding. Continue pathway at this time. Subjective - Subjective Date of service: 08/07/18 Patient reports: appetite normal, voiding normally, pain well controlled, ambulating normally Simpson: doing well Objective - Vital Signs Latest vital signs: Vital Signs Temp Pulse Resp BP BP Pulse Ox 08/06/18 23:50 98.2 F 59 L 18 120/49 98 08/06/18 19:39 98.3 F 57 L 18 121/68 100 08/06/18 16:19 98.0 F 65 20 104/54 97 08/06/18 10:50 97.8 F 61 18 119/66 08/06/18 09:56 58 L 111/55 08/06/18 09:05 61 114/69 08/06/18 08:51 68 116/63 08/06/18 08:35 65 116/73 08/06/18 08:20 79 111/58 Intake and Output 08/06/18 08/07/18 08/07/18 23:59 07:59 15:59 Intake Total 480 Balance 480 Intake: Oral 480 Other: Total, Intake Amount 480 # Voids Void 1 - Exam Breasts: Present: normal Cardiovascular: Present: Regular rate, Normal S1, Normal S2 Lungs: Present: Clear to auscultation, Normal air movement Abdomen: Present: normal appearance, soft, normal bowel sounds Vulva: both: normal Uterus: Present: normal, firm, fundal height below umbilicus Extremities: Present: normal - Labs Labs: Abnormal lab results 06/25/19 Range/Units 20:00 Hgb 9.9 L (10.1-14.3) gm/dl Hct 29.5 L (30.3-42.9) %
[2018-08-07] MEDS: PRENATAL VITAMIN PO SCH (09:25)
[2018-08-07] MEDS: FEOSOL PO SCH ×2 (09:25→21:17)
[2018-08-07] MEDS: COLACE PO SCH ×2 (09:25→21:17)
[2018-08-08] MEDS: IBUPROFEN PO SCH ×2 (00:46→12:05)
[2018-08-08] MEDS: NORCO 5/325 PO PRN ×2 (04:21→12:04)
--- NOTE | 2018-08-08 06:32 | Discharge Summary ---
Providers - Providers Date of Admission: 08/06/18 04:12 Date of discharge: 08/08/18 (pt desires d/c today; baby under moise-lights) Attending physician: ERIC SAENZ 08/06/18 17:04 Consult to Case Management [CONS] Routine Services Needed at Discharge: Manager Landscape Notified:: [id number] Additional Physician Instructions: UDS POSITIVE THC Primary care physician: ERIC SAENZ Hospitalization Reason for admission: active labor Delivery: Episiotomy: none Laceration: none Other procedures: none complications: none Discharge diagnosis: IUP at term delivered baby: male (will schedule circumcision) Condition at discharge: Good Disposition: DC-01 TO HOME OR SELFCARE - Discharge Diagnoses (1) (spontaneous vaginal delivery) Status: Acute Comment: RTO 4 weeks PP care Plan - Discharge Medications Prescriptions: Docusate Sodium [Colace] 100 mg PO BID PRN #60 capsule PRN Reason: Constipation Lidocain2.5%/Prilocai2.5% [Emla] 5 gm TP ONCE #1 tube Ferrous Sulfate [Feosol 325 MG tab] 325 mg PO BID #60 tablet - Provider Discharge Summary Activity: routine, no sex for 6 weeks, no heavy lifting 4 weeks, no strenuous exercise Diet: routine Instructions: routine Additional instructions: [] Smoking cessation referral if applicable(refer to patient education folder for contact #) [] Refer to [facility]'s [facility] Booklet Call your doctor immediately for: * Fever > 100.5 * Heavy vaginal bleeding ( >1 pad per hour) * Severe persistent headache * Shortness of breath * Reddened, hot, painful area to leg or breast * Drainage or odor from incision. * Keep incision clean and dry at all times and follow doctor's instructions regarding bathing/showering - Follow up plan Follow up: ERIC SAENZ MD [Primary Care Provider] - 7 Days (Congratulations! Please call [phone] to schedule your visit in 4 weeks and your son's circumcision in 1 week. Bring the EMLA cream with you to his visit. Do NOT use at home. Take motrin/ibuprofen for cramping/pain. Call with concerns.)
[2018-08-08] MEDS: PRENATAL VITAMIN PO SCH (12:04)
[2018-08-08] MEDS: COLACE PO SCH (12:04)
[2018-08-08] MEDS: FEOSOL PO SCH (12:04)
[2018-08-08 16:29] VITALS: BP 122/73
== END 2018-08-08 19:55 | disposition home or self-care (01) | DRG 775 ==
LOC: TRG 01:58 → LD 04:12 → TRG 04:12 → OB 10:59
PROVIDERS: ADMIT Obstetrics & Gynecology; ATTEND Obstetrics & Gynecology
PROC: 10E0XZZ Delivery of Products of Conception, External Approach (ICD-10-PCS; principal; 2018-08-06)
PROC: 3E0R3BZ Introduction of Anesthetic Agent into Spinal Canal, Percutaneous Approach (ICD-10-PCS; 2018-08-06)
PROC: 00HU33Z Insertion of Infusion Device into Spinal Canal, Percutaneous Approach (ICD-10-PCS; 2018-08-06)
PROC: 3E0234Z Introduction of Serum, Toxoid and Vaccine into Muscle, Percutaneous Approach (ICD-10-PCS; 2018-08-07)
DX: O60.14X0 Preterm labor third trimester with preterm delivery third trimester, not applicable or unspecified (principal); O99.824 Streptococcus B carrier state complicating childbirth; Z3A.36 36 weeks gestation of pregnancy; Z37.0 Single live birth; Z23 Encounter for immunization
CPT/HCPCS: 36415; 80307; 85014; 85018; 85027; 86592; 86850; 86900; 86901; 90471; 90715; G0378; A6250; J0290; J2590; J3010; J7120

== ENCOUNTER 2020-03-18 20:30 | Outpatient (CLI) | payer MEDICAID ==
[2020-03-18 20:44] VITALS: BP 131/60
[2020-03-18 21:15] LABS: Bilirubin,Urine NEG (Negative); Blood,Urine NEG (Negative); Color,Urine Yellow (Yellow); Mucus,Urine FEW /HPF; Protein,Urine <15 mg/dL mg/dL (Negative); Urobilinogen,Urine < 2.0 mg/dL (<2.0)
== END 2020-03-18 22:10 | disposition home or self-care (01) ==
LOC: TRG 20:30 → APU 20:33 → TRG 22:10
PROVIDERS: ATTEND Obstetrics & Gynecology
DX: O26.892 Other specified pregnancy related conditions, second trimester (principal); R10.9 Unspecified abdominal pain; Z3A.26 26 weeks gestation of pregnancy
CPT/HCPCS: 59025; 81001; 87086

== ENCOUNTER 2020-05-24 03:57 | Outpatient (CLI) | payer MEDICAID ==
[2020-05-24] MEDS ORDERED: LACTATED RINGERS 1,000 ML IV ONE (04:58)
[2020-05-24] MEDS ORDERED: TERBUTALINE 1 MG/1 ML INJ SUB-Q ONE ×2 (05:23→05:59)
[2020-05-24] MEDS ORDERED: TERBUTALINE 1 MG/1 ML INJ ONE (05:23)
[2020-05-24 06:52] LABS: Bilirubin,Urine NEG (Negative); Blood,Urine NEG (Negative); Color,Urine Straw (Yellow); Mucus,Urine FEW /HPF; Protein,Urine <15 mg/dL mg/dL (Negative); Urobilinogen,Urine < 2.0 mg/dL (<2.0)
[2020-05-24 06:57] VITALS: BP 121/63
[2020-05-24 07:15] LABS: RBC,Urine < 1.0 /HPF (0.0-6.0)
[2020-05-24 09:51] LABS: Amphetamine Screen,Urine Negative; Benzodiazepines Screen,Urine Negative; Cannabinoid Screen,Urine Negative; Cocaine Screen,Urine Negative; Methadone Screen,Urine Negative; Opiate Screen,Urine Negative
== END 2020-05-24 10:40 | disposition home or self-care (01) ==
LOC: TRG 03:57 → APU 04:01 → TRG 10:40
PROVIDERS: ATTEND Obstetrics & Gynecology
DX: O26.893 Other specified pregnancy related conditions, third trimester (principal); R10.9 Unspecified abdominal pain; O47.03 False labor before 37 completed weeks of gestation, third trimester; O99.333 Smoking (tobacco) complicating pregnancy, third trimester; F17.200 Nicotine dependence, unspecified, uncomplicated; Z3A.34 34 weeks gestation of pregnancy
CPT/HCPCS: 59025; 80307; 81001; 96360; 96372; J3105; J7120

== ENCOUNTER 2020-06-13 23:48 | Inpatient (IN) | payer MEDICAID ==
[2020-06-14] MEDS ORDERED: OXYTOCIN 10 UNIT/1 ML INJ IM PRN (02:51)
[2020-06-14] MEDS ORDERED: MINERAL OIL 30 ML ORAL LIQD PO PRN (02:51)
[2020-06-14] MEDS ORDERED: ACETAMINOPHEN 325 MG TAB PO PRN (02:51)
[2020-06-14] MEDS ORDERED: METHYLERGONOVINE MALEATE 0.2 MG/ML VIAL IM PRN (02:51)
[2020-06-14] MEDS ORDERED: LIDOCAINE (2%) 20 MG/1 ML VIAL 20 ML MDV INFILTRATI ONE (02:51)
[2020-06-14] MEDS ORDERED: AMPICILLIN/NS 2 GM/100 ML 2 GM/100 ML BAG IV ONE (02:51)
[2020-06-14] MEDS ORDERED: ePHEDrine SULFATE 50 MG/1 ML INJ IV PRN ×2 (02:51→04:51)
[2020-06-14] MEDS ORDERED: fentaNYL 100 MCG/2 ML INJ IV PRN (02:51)
[2020-06-14] MEDS ORDERED: miSOPROStol 200 MCG TAB PR PRN (02:51)
[2020-06-14] MEDS ORDERED: TERBUTALINE 1 MG/1 ML INJ SUB-Q PRN (02:51)
[2020-06-14] MEDS ORDERED: ONDANSETRON 4 MG/2 ML INJ IV PRN (02:51)
--- NOTE | 2020-06-14 02:58 | History and Physical Report ---
History of Present Illness Date of examination: 06/14/20 (pt active labor) Chief complaint: worsening ctx all day History of present illness: EDC Confirmation: 07/04/2020 Gestational Age: 37 2/7 weeks Past History : 8 Term Births: 2 Premature Births: 2 Living Children: 4 Para: 4 Mult. Births: 0 Prev : 0 Prev. attempt? 0 Aborta: 3 Elect. Ab: 1 Spont. Ab: 2 Ectopics: 0 # 1 Delivery date: 2013 labor: no Delivery type: SAB # 2 Delivery date: 2013 Delivery type: SAB # 3 Delivery date: 2013 Weeks Gestation: 38 Delivery type: Delivery location: [place], [place] Sex: Male weight: 5-6 # 4 Delivery date: 2014 Weeks Gestation: 35 labor: no Delivery type: Delivery location: [place], [place] Infant Sex: Male weight: 5-0 Comments: PROM # 5 Delivery date: 2016 Weeks Gestation: 38 labor: no Delivery type: Delivery location: [place], [place] Infant Sex: Female weight: 5-6 # 6 Delivery date: 2017 Delivery type: EAB # 7 Delivery date: 08/06/2018 Weeks Gestation: 36+4 Delivery type: Vaginal Hours of labor: 7 Anesthesia type: epidural Delivery location: [facility] Sex: male weight: 6.31 Name: faithful Comments: labor Past Medical History: Reviewed history from 04/24/2018 and no changes required: Bronchitis Past Surgical History: Reviewed history from 04/24/2018 and no changes required: Negative Past Surgical History Past Medical History 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 Infection History Hx of STD: GC/CT HIV Risk Eval: low risk Hepatitis B Risk Eval: low risk Personal hx. of genital herpes: no Partner hx. of genital herpes: no Rash, Viral, or Febrile illness since last LMP? no Varicella/Chicken Pox Status: Immunized Genetic History Congenital Heart Defect: Mom: no Dad: unknown Yen Disease: Mom: no Dad: unknown Thalassemia Mom: no Dad: unknown Neural Tube Defect Mom: no Dad: unknown Down's Syndrome Mom: no Dad: unknown Jose Antonio-Sachs Mom: no Dad: unknown Sickle Cell Disease/Trait Mom: no Dad: unknown Hemophilia Mom: no Dad: unknown Muscular Dystrophy Mom: no Dad: unknown Cystic Fibrosis Mom: no Dad: unknown Marion Chorea Mom: no Dad: unknown Mental Retardation Mom: no Dad: unknown Fragile X Mom: no Dad: unknown Other Genetic/Chromosomal Disorder Mom: no Dad: unknown Child w/other defect Mom: no Dad: unknown Enviromental Exposures Xray Exposure: no Medication, drug, or alcohol use since LMP: no Chemical/Other Exposure: no Exposure to Cat Liter: no Hx of Parvovirus (Fifth Disease): no Occupational Exposure to Children: none Active Medications (reviewed today): None Current Allergies (reviewed today): * SHELLFISH (Critical) * NICKEL (Critical) CONDOMS (CONDOMS - MALE) (Critical) 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 Social history: single, smoking - Obstetrical History Expected Date of Delivery: 07/04/20 Actual Gestation: 37 Week(s) 1 Day(s) : 10 Para: 4 Hx # Term Pregnancies: 2 Number of Pregnancies: 2 Spontaneous Abortions: 4 Induced : 1 Number of Living Children: 4 Medications and Allergies Allergies Allergy/AdvReac Type Severity Reaction Status Date / Time iodine Allergy Anaphylaxis Verified 08/06/18 02:34 shellfish derived Allergy Rash Verified 06/02/17 15:53 Home Medications Medication Instructions Recorded Confirmed Last Taken Type Vit-Fe Fumar-FA [ 1 tab PO QDAY 08/06/18 06/13/20 06/12/20 History Vitamin] Docusate Sodium [Colace] 100 mg PO BID PRN #60 capsule 08/07/18 06/13/20 Unknown Rx Ferrous Sulfate [Feosol 325 MG tab] 325 mg PO BID #60 tablet 08/07/18 06/13/20 Unknown Rx Lidocain2.5%/Prilocai2.5% [Emla] 5 gm TP ONCE #1 tube 08/07/18 06/13/20 Unknown Rx Review of Systems All systems: negative Psychiatric: depression () - Vital Signs Vital signs: Vital Signs Pulse Ox 87 06/13/20 08:39 Temp Pulse Resp BP Pulse Ox 30 L 119/58 73 L 06/14/20 02:51 06/14/20 02:39 06/14/20 02:51 - Physical Exam Breasts: Positive: deferred Cardiovascular: Regular rate, Normal S1, Normal S2 Lungs: Positive: Normal air movement Abdomen: Positive: normal appearance, soft, normal bowel sounds. Negative: distention, tenderness Genitourinary (Female): Positive: normal external genitalia Vulva: both: normal Vagina: Positive: normal moisture. Negative: discharge Cervix: Negative: lesion, discharge Uterus: Positive: normal size, normal contour Adnexa: both: normal Anus/Rectum: Positive: normal perianal skin, heme negative. Negative: rectal mass, hemorrhoids Extremities: Positive: normal Deep Tendon Reflex Grade: Normal +2 - Obstetrical FHR: category 1 Uterine Contraction Monitor Mode: External Cervical Dilatation: 5 Cervical Effacement Percentage: 70 station: -2 Uterine Contraction Pattern: Regular Uterine Tone Measurement Phase: Resting Uterine Contraction Intensity: Moderate Results All other labs normal. GBS Unknown HBsAg Screen Negative Negative *1 RPR Non Reactive Non Reactive *2 Rubella Antibodies, IgG [L] 0.95 index Immune >0.99 *3 A second sample should be collected and tested no less than 2-4 weeks. Non-immune <0.90 Equivocal 0.90 - 0.99 Immune >0.99 ABO Grouping O *4 Rh Factor Positive *5 Antibody Screen Negative Negative *6 WBC [H] 11.5 x10E3/uL 3.4-10.8 *7 RBC 4.37 x10E6/uL 3.77-5.28 *8 Hemoglobin 13.0 g/dL 11.1-15.9 *9 Hematocrit 39.4 % 34.0-46.6 *10 MCV 90 fL 79-97 *11 MCH 29.7 pg 26.6-33.0 *12 MCHC 33.0 g/dL 31.5-35.7 *13 RDW 12.2 % 11.7-15.4 *14 Platelets 306 x10E3/uL 150-450 *15 Neutrophils 70 % Not Estab. *16 Lymphs 19 % Not Estab. *17 Monocytes 7 % Not Estab. *18 Eos 2 % Not Estab. *19 Basos 1 % Not Estab. *20 ! Immature Cells <No Reported Value> *21 Neutrophils (Absolute) [H] 8.1 x10E3/uL 1.4-7.0 *22 Lymphs (Absolute) 2.2 x10E3/uL 0.7-3.1 *23 Monocytes(Absolute) 0.8 x10E3/uL 0.1-0.9 *24 Eos (Absolute) 0.2 x10E3/uL 0.0-0.4 *25 Baso (Absolute) 0.1 x10E3/uL 0.0-0.2 *26 ! Immature Granulocytes 1 % Not Estab. *27 ! Immature Grans (Abs) 0.1 x10E3/uL 0.0-0.1 *28 ! NRBC <No Reported Value> *29 Hematology Comments: <No Reported Value> *30 Tests: (2) AFP Tetra ([id number]) ! Results Report *31 ! Test Results: *Screen Negative* *32 ! Gest. Age on Collection Date 16.1 WEEKS *33 ! Gestat. Age Based On Ultrasound *34 16.1 on 01/19/2020 ! [age]ERT [age] *35 ! Race Black *36 ! Weight 144 lbs *37 ! Insulin Dep Diabetes No *38 ! Multiple Gestation No *39 ! AFP Value 67.5 ng/mL *40 ! AFP MoM 1.77 *41 ! hCG Value 89329 mIU/mL *42 ! hCG MoM 0.30 *43 ! uE3 Value 0.91 ng/mL *44 ! uE3 MoM 0.92 *45 ! MARY Value 177.27 pg/mL *46 ! MARY MoM 1.04 *47 ! OSBR Risk 1 IN 2747 *48 ! DSR (Second Trimester) 1 [place] [address] *49 ! DSR (By Age) 1 IN 1012 *50 ! T18 Risk Not increased *51 ! T18 (By Age) 1:3944 *52 ! Interpretation NL42 *53 Interpretation: Screen Negative This result is screen negative for OSB, Down Syndrome and Trisomy 18. The AFP MoM and patient specific risks calculated are based on the gestational age and the clinical information provided. This test can identify up to 80% of open neural tube defects. Closed neural tube defects and some open defects may not be detected by this test. The combination of maternal age, AFP, hCG, uE3, and MARY identifies 75-80% of Down Syndrome. The combination of maternal age, AFP, hCG and uE3 identifies 60% of Trisomy 18 pregnancies. The [employer] recommends amniocentesis be offered to women age 35 and older. Recalculations are not recommended when gestational dating by LMP and ultrasound are within 10 days. ! Comments: [facility] [place] *54 Bridget Singh, Ph.D., [facility] Director References: Available Upon Request. Multiples Of Median Cutoffs Abbreviation Definitions For AFP Elevations IDD- Insulin Dep Diabetes Spence 2.5 Black 2.8 OSBR- Open Spina Bifida IDD 2.0 Twins 4.5 Risk DSR Cutoff 1:270 DSR- Down Syndrome Risk T18 Cutoff 1:100 T18- Trisomy 18 Down Syndrome and Trisomy 18 screening are considered Investigational For further inquiries contact [facility] at [phone]. Tests: (3) HIV Ag/Ab with Reflex ([id number]) HIV Screen 4th Generation wRfx Non Reactive Non Reactive *55 Tests: (4) HCV Ab w/Rflx to Verification ([id number]) ! HCV Ab <0.1 s/co ratio 0.0-0.9 *56 Tests: (5) Comment: ([id number]) ! Comment: SPR *57 Non reactive HCV antibody screen is consistent with no HCV infection, unless recent infection is suspected or other evidence exists to indicate HCV infection. Effective March 01, 2020 HCV Ab w/Rflx to Verification will be made non-orderable. [facility] offers order code [id number] HCV Antibody reflex to PHIL. Tests: (6) Urine Culture, Routine ([id number]) Urine Culture, Routine [A] Final report *58 Tests: (7) Result ([id number]) ! Result 1 [A] "Result Below..." *59 RESULT: Enterococcus faecalis Greater than 100,000 colony forming units per mL For Enterococcus species, aminoglycosides (except for high-level resistance screening), cephalosporins, clindamycin, and trimethoprim-sulfamethoxazole are not effective clinically. (CLSI, L031-K22, 2016) ! Antimicrobial Susceptibility MIHEAD *60 S = Susceptible; I = Intermediate; R = Resistant P = Positive; N = Negative MICS are expressed in micrograms per mL Antibiotic RSLT#1 RSLT#2 RSLT#3 RSLT#4 Ciprofloxacin S Levofloxacin S Nitrofurantoin S Penicillin S Tetracycline R Vancomycin S Assessment and Plan 25yo @ 37w GBS unknown Ampicillin protocol All orders in EMR Anticipate delivery - Patient Problems (1) 37 or more weeks gestation of Onset Date: ~06/14/20 Current Visit: Yes Status: Acute Plan to address problem: this is pt's second trip to Triage today SVE was unchged. Pt began to have more freq regular ctx On my arrival pt was 5,70,-2 Admitted for labor (2) History of depression, currently in third trimester Onset Date: ~06/14/20 Current Visit: Yes Status: Acute Plan to address problem: Pt denies any concerns @ this time Will monitor closely PP depression scale to be reviewed (3) GBS screening not performed Onset Date: ~06/14/20 Current Visit: Yes Status: Acute Plan to address problem: Pt was not seen after her 34w visit. GBS culture not performed. Pt has hx of GBS+ Will treat per protocol (4) Rubella non-immune status, antepartum Onset Date: ~06/14/20 Current Visit: Yes Status: Acute Plan to address problem: MMR (5) Insufficient care in third trimester Onset Date: ~06/14/20 Current Visit: Yes Status: Acute Plan to address problem: Pt has had <4 visits for this . Pt was contacted and encouraged to make appt for care
[2020-06-14] MEDS ORDERED: OXYTOCIN DRIP 30 UNITS/500 ML BAG IV SCH ×2 (03:00)
[2020-06-14] MEDS: LACTATED RINGERS 1,000 ML IV SCH ×2 (04:05→05:33)
[2020-06-14] MEDS ORDERED: NALOXONE 2 MG/2 ML INJ IV PRN (04:51)
--- NOTE | 2020-06-14 04:51 | Anesthesia Consultation ---
Anesthesia Consult and Med Hx Date of service: 06/14/20 - Airway Anesthetic Teeth Evaluation: Good ROM Head & Neck: Adequate Mental/Hyoid Distance: Adequate Mallampati Class: Class II Intubation Access Assessment: Good - Pulmonary Exam CTA: Yes - Cardiac Exam Cardiac Exam: RRR - Pre-Operative Health Status ASA Pre-Surgery Classification: ASA2 Proposed Anesthetic Plan: Epidural - Pulmonary Hx Smoking: Yes (1/2PPD X 6YRS) Hx Asthma: No (hx of Bronchitis) Hx Respiratory Symptoms: No SOB: No COPD: No Home Oxygen Therapy: No Hx Pneumonia: No Hx Sleep Apnea: No - Cardiovascular System Hx Hypertension: No Hx Coronary Artery Disease: No Hx Heart Attack/AMI: No Hx Angina: No Hx Percutaneous Transluminal Coronary Angioplasty (PTCA): No Hx Cardia Arrhythmia: No Hx Pacemaker: No Hx Internal Defibrillator: No Hx Valvular Heart Disease: No Hx Heart Murmur: No Hx Peripheral Vascular Disease: No - Central Nervous System Hx Neuromuscular Disorder: No Hx Seizures: No CVA: No Hx Back Pain: No Hx Psychiatric Problems: No - Gastrointestinal Hx Ulcer: No Hx Gastroesophageal Reflux Disease: No - Endocrine Hx Renal Disease: No Hx End Stage Renal Disease: No Hx Cirrhosis: No Hx Liver Disease: No Hx Insulin Dependent Diabetes: No Hx Non-Insulin Dependent Diabetes: No Hx Thyroid Disease: No Hx Hypothyroidism: No Hx Hyperthyroidism: No - Hematic Hx Anemia: No Hx Sickle Cell Disease: No - Other Systems Hx Alcohol Use: Yes (beer) Hx Substance Use: No Hx Cancer: No Hx Obesity: No
[2020-06-14] MEDS ORDERED: fentaNYL-BUPIV 2 MCG/ML-0.125% 200 MCG/100 ML BAG EPIDURAL SCH (05:00)
[2020-06-14 05:06] LABS: Hematocrit 35.7 % (30.3-42.9); Hemoglobin 11.9 gm/dl (10.1-14.3); Mean Corpuscular HGB Conc 33 % (30-34); Mean Corpuscular Volume 86 fl (79-97); Platelet Count 238 K/mm3 (140-440); Red Blood Count 4.17 M/mm3 (3.65-5.03); Red Cell Distribution Width 12.6 % (13.2-15.2)
--- NOTE | 2020-06-14 05:17 | Progress Note ---
Labor Epidural - Labor Epidural Start Time: 05:05 Stop Time: 05:08 Performed by:: GLENDY CONRAD Procedure: Patient is requesting a laboring epidural for laboring pain. Patient IDed, H&P reviewed, all questions and concerns were answered, and consent was signed. Timeout was performed at bedside. Patient in sitting position. Sterile prep and drape was performed. [3] ml of 1% lidocaine skin wheal at L[3]- L [4]. 18- gauge Tuohy epidural needle was advanced to loss of resistance with saline technique 5cm. Negative CSF negative blood. Epidural catheter advanced to [10] centimeters. [NEGATIVE] Aspiration [NEGATIVE] test dose. Sterile dressing applied. Patient tolerated procedure.
[2020-06-14 05:19] LABS: Amphetamine Screen,Urine PRESUMPTIVE NEGATIVE; Benzodiazepines Screen,Urine PRESUMPTIVE NEGATIVE; Cannabinoid Screen,Urine PRESUMPTIVE NEGATIVE; Cocaine Screen,Urine PRESUMPTIVE NEGATIVE; Methadone Screen,Urine PRESUMPTIVE NEGATIVE; Opiate Screen,Urine PRESUMPTIVE NEGATIVE
[2020-06-14] MEDS ORDERED: PROMETHAZINE 25 MG TAB PO PRN (06:28)
[2020-06-14] MEDS ORDERED: LANOLIN/ZINC/DIMETHICONE (LANSINOH) 7 GM TP PRN (06:28)
[2020-06-14] MEDS ORDERED: MAGNESIUM HYDROXIDE (MOM) ORAL LIQD UDC PO PRN (06:28)
[2020-06-14] MEDS ORDERED: diphenhydrAMINE 25 MG CAP PO PRN (06:28)
[2020-06-14] MEDS ORDERED: WITCH HAZEL/ GLYCERIN PAD TP PRN (06:28)
--- NOTE | 2020-06-14 06:37 | Procedure Note ---
OB Delivery Note - Delivery Date of Delivery: 06/14/20 Lead Burner Helper: ORQUIDEA MANCILLA Estimated blood loss: 500cc - Vaginal Delivery presentation: vertex Delivery position: OA Intrapartum events: other(please specify) (insufficient PNC; GBS unknown ) Delivery induction: none Delivery augmentation: rupture of membranes Delivery monitor: external FHT, external uterine Route of delivery: Delivery placenta: spontaneous Delivery cord: nuchal cord, 3 umbilical vessels Episiotomy: none Delivery laceration: none Anesthesia: epidural Delivery comments: RAEGAN present Count correct X 2 live born male over intact perineum. CAN x 1 reduced. Baby to mom's abdomen skin to skin. Cord blood obtained. Placenta and membrane delivered complete and intact, 3 vessel cord. Pit IVFs. 8/8, EBL 500, Wgt 5-15 Placenta to pathology. Mom and baby remain LDR stable. - Infant A at 1 minute: 8 at 5 minutes: 8 Gender: Male (wgt 5-15 GABE)
[2020-06-14] MEDS ORDERED: AMPICILLIN/NS 1 GM/50 ML 1 GM/50 ML BAG IV SCH (07:00)
[2020-06-14] MEDS: IBUPROFEN 800 MG TAB PO SCH ×3 (09:37→20:54)
--- NOTE | 2020-06-14 17:58 | Post Anesthesia Evaluation ---
- Post Anesthesia Evaluation Patient Participated: Yes Airway Patent: Yes Stable Respiratory Function: Yes Nausea/Vomiting: No Temp > 96.8F: Yes Pain Manageable: Yes Adequeate Hydration: Yes Anesthesia Complications: No Block Receding Appropriately: Yes Patient on Ventilator: No
[2020-06-14 20:16] LABS: Hematocrit 31.5 % (30.3-42.9); Hemoglobin 10.7 gm/dl (10.1-14.3)
[2020-06-15] MEDS: IBUPROFEN 800 MG TAB PO SCH ×3 (04:26→18:30)
[2020-06-15] MEDS ORDERED: TETANUS,DIPH,PERTUSS(ACELL) VACCINE 0.5 ML SYRINGE IM ONE (06:00)
[2020-06-15] MEDS ORDERED: MEASLES, MUMPS & RUBELLA 12,500 UNIT/0.5 ML VACCINE SUB-Q ONE (06:00)
[2020-06-15] MEDS ORDERED: medroxyPROGESTERone ACETATE 150 MG/ML SYRINGE IM NR (07:19)
--- NOTE | 2020-06-15 07:23 | Discharge Summary ---
Providers - Providers Date of Admission: 06/14/20 02:52 Date of discharge: 06/15/20 (pt agrees to d/c) Attending physician: ERIC SAENZ 06/14/20 10:53 Consult to Case Management [CONS] Routine Services Needed at Discharge: Other Notified:: [id number] Comment:: Limited PNC Primary care physician: ERIC SAENZ Hospitalization Reason for admission: active labor, IUP at term Delivery: Episiotomy: none Laceration: none Other procedures: none complications: none Discharge diagnosis: IUP at term delivered [place] baby: male Hospital course: uncomplicated vaginal delivery Pt awake No c/o voiced. VSS FF below umb Lochia small perineum intact H&H 12/12 No s/sx of anemia Doing well s/p vag delivery. P: d/c today with instructions RTO 4 weeks PP care DEPO @ d/c Condition at discharge: Good Disposition: DC-01 TO HOME OR SELFCARE - Discharge Diagnoses (1) Rubella non-immune status, antepartum Status: Acute Comment: MMR given today along with TDap (2) (spontaneous vaginal delivery) Status: Acute Comment: RTO 4 weeks PP care Plan - Discharge Medications Prescriptions: Lidocain2.5%/Prilocai2.5% [Emla] 5 gm TP PRN #1 tube Ibuprofen [Motrin 800 MG tab] 800 mg PO TID PRN #30 tablet PRN Reason: Pain - Provider Discharge Summary Activity: routine, no sex for 6 weeks, no heavy lifting 4 weeks, no strenuous exercise Diet: routine Instructions: routine Additional instructions: [] Smoking cessation referral if applicable(refer to patient education folder for contact #) [] Refer to [facility] Booklet Call your doctor immediately for: * Fever > 100.5 * Heavy vaginal bleeding ( >1 pad per hour) * Severe persistent headache * Shortness of breath * Reddened, hot, painful area to leg or breast * Drainage or odor from incision. * Keep incision clean and dry at all times and follow doctor's instructions regarding bathing/showering - Follow up plan Follow up: ERIC SAENZ MD [Primary Care Provider] - 7 Days (Congratulations! Mom, Dad, and Dylon! Please call [phone] to schedule your visit in 4 weeks and your son's circumcision in 1 week. Bring the EMLA cream with you to his visit. Do NOT use at home. Take medications as prescribed. Call with any concerns.)
[2020-06-15 22:03] VITALS: BP 116/58
== END 2020-06-15 21:40 | disposition home or self-care (01) | DRG 775 ==
LOC: TRG 23:48 → APU 23:54 → TRG 06-14 02:51 → LD 06-14 02:52 → OB 06-14 10:36
PROVIDERS: ADMIT Obstetrics & Gynecology; ATTEND Obstetrics & Gynecology
PROC: 10E0XZZ Delivery of Products of Conception, External Approach (ICD-10-PCS; principal; 2020-06-14)
PROC: 3E0R3BZ Introduction of Anesthetic Agent into Spinal Canal, Percutaneous Approach (ICD-10-PCS; 2020-06-14)
PROC: 00HU33Z Insertion of Infusion Device into Spinal Canal, Percutaneous Approach (ICD-10-PCS; 2020-06-14)
PROC: 3E0234Z Introduction of Serum, Toxoid and Vaccine into Muscle, Percutaneous Approach (ICD-10-PCS; 2020-06-15)
PROC: 3E0134Z Introduction of Serum, Toxoid and Vaccine into Subcutaneous Tissue, Percutaneous Approach (ICD-10-PCS; 2020-06-15)
DX: O99.334 Smoking (tobacco) complicating childbirth (principal); O99.344 Other mental disorders complicating childbirth; Z20.822 Contact with and (suspected) exposure to COVID-19; F17.210 Nicotine dependence, cigarettes, uncomplicated; Z37.0 Single live birth; Z3A.37 37 weeks gestation of pregnancy; Z91.041 Radiographic dye allergy status; Z91.013 Allergy to seafood; Z79.899 Other long term (current) drug therapy; Z23 Encounter for immunization
CPT/HCPCS: 36415; 80307; 85014; 85018; 85027; 86850; 86900; 86901; 88307; 90471; 90472; 90707; 90715; 99406; G0378; A6250; J1050; J2590; J3010; J7120; Q0177; U0003